=== PATIENT | female | born 1965 | race African-American/Black ===

== ENCOUNTER 2022-08-29 17:27 | Emergency (ER) | payer OTHER ==
[~2022-08-29] VITALS: Ht 154.9 cm; Wt 49.9 kg
[2022-08-29] MEDS ORDERED: CEFTRIAXONE 1 G VIAL IM ONE (20:15)
[2022-08-29] MEDS ORDERED: SULFAMETH/TRIMETH 800/160 MG TABLET PO ONE (20:15)
[2022-08-29] MEDS ORDERED: CEPH500T PO (20:22)
[2022-08-29] MEDS ORDERED: SULF1TAB48 PO (20:22)
--- NOTE | 2022-08-29 20:29 | NUR ---
REPORT RECEIVED FROM DR WEBER.
[2022-08-29] MEDS ORDERED: CEFTRIAXONE 1 G VIAL ONE (20:31)
[2022-08-29] MEDS ORDERED: LIDOCAINE HCL 1% 20 ML VIAL ONE (20:32)
[2022-08-29] MEDS ORDERED: SULFAMETH/TRIMETH 800/160 MG TABLET ONE (20:32)
--- NOTE | 2022-08-29 20:49 | NUR ---
PT A,A AND O X 4 WITH NO C/O PAIN AND NAD OBSERVED. Patient discharged to home in stable condition. Written and verbal after care instructions given. Patient verbalizes understanding of instructions. Stressed follow up or return to ER for worsening s/s.PT AMB OUT WITH STEADY GAIT.
[2022-08-29 20:51] VITALS: BP 129/71
== END 2022-08-29 20:50 | disposition home or self-care (01) ==
LOC: ER 17:29
DX: L03.113 Cellulitis of right upper limb (principal)
CPT/HCPCS: 99283; 96372; J0696; J3490; A4663

== ENCOUNTER 2022-08-30 12:20 | Emergency (ER) | payer OTHER ==
[~2022-08-30] VITALS: Ht 154.9 cm; Wt 49.9 kg
[~2022-08-30 12:20] MED LIST: CEPH500T PO; SULF1TAB48 PO
--- NOTE | 2022-08-30 13:08 | NUR ---
PT SEEN AND EVALUATED BY DR WEBER. PT INSTRUCTED TO CONTINUE WITH PO ANTIBIOTICS.
[2022-08-30 13:09] VITALS: BP 140/80
== END 2022-08-30 13:10 | disposition home or self-care (01) ==
LOC: ER 12:20
DX: L03.113 Cellulitis of right upper limb (principal); Z79.899 Other long term (current) drug therapy
CPT/HCPCS: A4663